=== PATIENT | female | born 1970 | race Caucasian/White ===

== ENCOUNTER → 2017-02-10 | Outpatient (CLI) | payer OTHER | LOC: US 09:25 | DX: R10.11 Right upper quadrant pain (principal) | CPT/HCPCS: 76705 ==

== ENCOUNTER → 2017-03-11 | Outpatient (CLI) | payer OTHER | LOC: US 14:57 | DX: N32.81 Overactive bladder (principal) ==

== ENCOUNTER 2021-03-21 23:06 | Emergency (ER) | payer SELFPAY ==
[~2021-03-21 23:06] MED LIST: BENADRYL 25MG C25 MG PO; DETROL LA 4 MG C4 MG PO; DICLOFENAC OINTMENT TOP; ELMIRON100 MG PO; FISH OIL 1,0001 EACH PO; FLEXERIL 10 MG10 MG PO; FLONASE ALLER15.8 ML; HYDROCHLOROTHIA25 MG PO; IBUPROFEN800 MG PO; NICODERM CQ1 EAC1 TD; ROBAXIN-750750 MG PO; ZYRTEC10 M3 PO
[2021-03-22] MEDS ORDERED: NORFLEX 100 MG100 MG PO (02:18)
[2021-03-22] MEDS ORDERED: LODINE CAP 300300 MG PO (02:18)
== END 2021-03-22 02:29 | disposition home or self-care (01) ==
LOC: ER1 23:06
DX: S29.012A Strain of muscle and tendon of back wall of thorax, initial encounter (principal); S70.01XA Contusion of right hip, initial encounter; S80.01XA Contusion of right knee, initial encounter; F17.210 Nicotine dependence, cigarettes, uncomplicated; Z90.710 Acquired absence of both cervix and uterus; X50.1XXA Overexertion from prolonged static or awkward postures, initial encounter
CPT/HCPCS: 73502; 73564; 99283